=== PATIENT | male | born 1980 | race Caucasian/White ===

== ENCOUNTER 2019-03-28 11:37 | Observation (INO) ==
[2019-03-28] MEDS ORDERED: Isovue-370 500 ML BOTTLE IVP ONE (11:52)
[2019-03-28] MEDS ORDERED: *HR* FentaNYL (PF) 100 MCG/2 ML VIAL IVP ONE (11:54)
--- NOTE | 2019-03-28 12:02 | Emergency Department Note ---
Disposition Clinical Impression: Angioedema Qualifiers: Encounter type: initial encounter Qualified Code(s): T78.3XXA - Angioneurotic edema, initial encounter Disposition: Admitted As Inpatient Condition: Good Referrals: NONE,PCP [Primary Care Provider] - Forms: ED Satisfaction Letter, Work/School Release Time of Disposition: 14:45 General Adult HPI - General Chief complaint: ED General Medical Stated complaint: Facial Swelling Time Seen by Provider: 03/28/19 11:43 Source: patient Limitations: no limitations Nursing Notes Reviewed: Yes Vital Signs Reviewed: Yes - History of Present Illness Pain Scale: 9 - Related Data Home Medications Medication Instructions Recorded Confirmed No Known Home Drugs 03/28/19 03/28/19 Allergies Allergy/AdvReac Type Severity Reaction Status Date / Time No Known Allergies Allergy Verified 03/12/18 16:51 Past Medical History - Past Medical History Medical history: Reports: no medical history, other Psychiatric history: Reports: anxiety, depression - Social History Smoking Status: Never smoker Smokeless Tobacco Status: No Alcohol use: Reports: none Drug use: Reports: none Physical Exam - General Limitations: no limitations General appearance: alert Course Vital Signs Temperature 98.2 F 03/28/19 11:38 Pulse Rate 92 03/28/19 11:38 Respiratory Rate 18 03/28/19 11:38 Blood Pressure 160/97 03/28/19 11:38 O2 Sat by Pulse Oximetry 97 03/28/19 11:38 Temperature 98.2 F 03/28/19 11:38 Pulse Rate 89 03/28/19 13:32 Respiratory Rate 20 03/28/19 13:32 Blood Pressure 151/84 03/28/19 13:32 O2 Sat by Pulse Oximetry 97 03/28/19 13:32 Oxygen Delivery Oxygen Delivery Room Air Medical Decision Making - [facility] Narrative Medical decision making narrative: 1342 hrs.: Labs are back and look good. His glucose is little elevated 123. Symptoms have not changed have not gotten worse either. Waiting on CT scan. 1422 hrs.: Patient's CT is back. We spoke with the ear nose and throat, Dr. Bull was on and recommended start him on Unasyn. In case this is infectious. We will also name steroids. Admitted to hospitalist with ENT consulting. Patient's in agreement with plan. Impression is angioedema uncertain etiology. 1505 hrs.: Hospitals except the patient to their service. - Lab Data Result diagrams: 03/28/19 12:20 03/28/19 12:20 Lab Results 03/28/19 03/28/19 Range/Units 12:20 12:20 WBC 9.7 (4.3-11.1) K/mcL RBC 5.59 H (4.19-5.50) M/mcL Hgb 16.5 (12.9-16.9) g/dL Hct 48.0 (37.5-50.1) % MCV 85.9 (83.0-100.0) fL MCH 29.5 (28.0-33.3) pg MCHC 34.4 (31.6-35.5) g/dL RDW 11.8 (11.5-14.5) % Plt Count 222 (140-400) K/mcL MPV 9.9 (9.4-12.4) fL Immature Gran % 0.3 (0-4) % Seg Neutrophils % 75.9 % Lymphocytes % 11.0 % Monocytes % 11.8 % Eosinophils % 0.7 % Basophils % 0.3 % Neutrophils # 7.4 (1.6-8.9) K/mcL Lymphocytes # 1.1 (0.6-4.6) K/mcL Monocytes # 1.1 (0.0-1.3) K/mcL Eosinophils # 0.1 (0.0-0.6) K/mcL Basophils # 0.0 (0.0-0.2) K/mcL Sodium 139 (136-145) mEq/L Potassium 3.9 (3.5-5.1) mEq/L Chloride 105 (98-107) mEq/L Carbon Dioxide 27 (23-29) mEq/L BUN 11 (6-20) mg/dL Creatinine 0.71 (0.70-1.30) mg/dL Est GFR ( Amer) > 60 (> 60) Est GFR (Non-Af Amer) > 60 (> 60) BUN/Creatinine Ratio 15 (6-26) Glucose 123 H (70-105) mg/dL Calculated Osmolality 289 (280-300) Calcium 9.1 (8.6-10.3) mg/dL Critical Care Time Critical Care Time: Yes Total Critical Care Time: 32 Attestation: Excluding any separately billable procedures. Attestation Statement - Attestation Attestation: This documentation is done with the assistance of Dragon dictation. Despite efforts made to ensure accuracy, there may be inaccuracies in rn maternal child or spelling and typographical errors. I examined this patient and my medical decision-making was reviewed with the Resident Physician. I agree with the documented findings, disposition and treatment plan as described except to the extent set forth below. Patient was seen and evaluated by Dr. Peng I agree with their evaluation and management plan, I supervised care the patient's stay. Patient presents today with swelling of his upper lip and left side of his face. Said started last night and his lip no difficulty swallowing no tongue swelling no airway compromise. He states his abdomen before. He is not any medications no JOSE inhibitor's. Nothing new as far as his diet or new chemical exposures. Denies any family history. He has had some history of poor dentition in the past without seen that looks infected we are in a CT the area this seems to be angioedema but I do not know the cause. we are going to go ahead and do CT give antihistamines and then reassess. She is in agreement with plan
--- NOTE | 2019-03-28 12:19 | Emergency Department Note ---
Disposition Clinical Impression: Angioedema Qualifiers: Encounter type: initial encounter Qualified Code(s): T78.3XXA - Angioneurotic edema, initial encounter Disposition: Admitted As Inpatient Condition: Good Referrals: NONE,PCP [Primary Care Provider] - Forms: ED Satisfaction Letter, Work/School Release Time of Disposition: 15:04 General Adult HPI - General Chief complaint: ED General Medical Stated complaint: Facial Swelling Time Seen by Provider: 03/28/19 11:43 Source: patient Mode of arrival: ambulatory Limitations: no limitations Nursing Notes Reviewed: Yes Vital Signs Reviewed: Yes - History of Present Illness HPI Narrative: Patient is a 39-year-old male that presents emergency department due to facial swelling. Patient states that the swelling started last night. Patient states that the swelling is located on his upper lip and into his left cheek. Patient states he has had this one other time in the past. Patient states that he has not on any Som inhibitors or any medications at this time. Patient states is not have any difficulty with breathing or swallowing. Patient states that it is difficult to drink due to his lip being swollen. Patient states that he has significant history of poor dentition as an following with a dentist to have his teeth pulled. Patient states that he was concerned because his face became increasingly painful and swollen and felt that he should want to be evaluated. Patient has any fevers. Pain Scale: 9 - Related Data Previous Rx's Medication Instructions Recorded Clindamycin [Cleocin] 300 mg PO Q6HR #80 capsule 03/12/18 Allergies Allergy/AdvReac Type Severity Reaction Status Date / Time No Known Allergies Allergy Verified 03/12/18 16:51 All systems ED: reviewed and negative except as stated. Constitutional: Denies: fever ENT ED: Reports: other (Lip and face pain) Cardiovascular: Denies: chest pain Respiratory: Denies: dyspnea Gastrointestinal: Denies: nausea, vomiting, diarrhea Neurological: Denies: weakness, numbness, paresthesias Past Medical History - Past Medical History Medical history: Reports: no medical history, other Psychiatric history: Reports: anxiety, depression - Social History Smoking Status: Never smoker Smokeless Tobacco Status: No Alcohol use: Reports: none Drug use: Reports: none Physical Exam - General Limitations: no limitations General appearance: alert, in no apparent distress - Head Head exam: atraumatic, normocephalic - Expanded ENT Exam Mouth exam: Present: lip swelling (Significant upper lip swelling), tongue normal. Absent: normal external inspection, tounge swelling Teeth exam: Present: other (Multiple dental caries and poor dentition) - Neck Neck exam: Present: normal inspection, full ROM, trachea midline - Respiratory Respiratory exam: Present: normal lung sounds bilaterally. Absent: respiratory distress, wheezes - Cardiovascular Cardiovascular exam: Present: regular rate, normal rhythm, normal heart sounds, +S1, +S2 - Abdominal Exam Abdominal exam: Present: soft, Non-Tender, normal bowel sounds - Neurological Exam Neurological exam: Present: alert, oriented X3 - Psychiatric Psychiatric exam: Present: normal affect, normal mood - Skin Skin exam: Present: warm, dry, intact Course Vital Signs Temperature 98.2 F 03/28/19 11:38 Pulse Rate 92 03/28/19 11:38 Respiratory Rate 18 03/28/19 11:38 Blood Pressure 160/97 03/28/19 11:38 O2 Sat by Pulse Oximetry 97 03/28/19 11:38 Temperature 98.2 F 03/28/19 11:38 Pulse Rate 89 03/28/19 13:32 Respiratory Rate 20 03/28/19 13:32 Blood Pressure 151/84 03/28/19 13:32 O2 Sat by Pulse Oximetry 97 03/28/19 13:32 Oxygen Delivery Oxygen Delivery Room Air Medical Decision Making - MDM Narrative Medical decision making narrative: Due the patient is not emergency Department with reports of swelling to the face we will obtain basic laboratory testing as well as a CT scan of the patient's f som to evaluate for possible abscess formation. Patient laboratory testing is felt to be unremarkable. The CT scan did not show any focal fluid collected but did show soft tissue swelling. I called and spoke with ENT Dr. Steve who recommended that the patient be started on IV antibiotics. Patient was given Pepcid, Benadryl and steroids. The patient will be admitted to the hospital for further evaluation and management. I spoke the admitting hospital list doctor Berny and he is except the patient to their service for further evaluation and management. - Medical Records Medical records reviewed: Yes I reviewed the patient's medical records. - Lab Data Lab results reviewed: Yes I reviewed the patient's lab results. Result diagrams: 03/28/19 12:20 03/28/19 12:20 Lab Results 09/07/19 09/07/19 Range/Units 12:20 12:20 WBC 9.7 (4.3-11.1) K/mcL RBC 5.59 H (4.19-5.50) M/mcL Hgb 16.5 (12.9-16.9) g/dL Hct 48.0 (37.5-50.1) % MCV 85.9 (83.0-100.0) fL MCH 29.5 (28.0-33.3) pg MCHC 34.4 (31.6-35.5) g/dL RDW 11.8 (11.5-14.5) % Plt Count 222 (140-400) K/mcL MPV 9.9 (9.4-12.4) fL Immature Gran % 0.3 (0-4) % Seg Neutrophils % 75.9 % Lymphocytes % 11.0 % Monocytes % 11.8 % Eosinophils % 0.7 % Basophils % 0.3 % Neutrophils # 7.4 (1.6-8.9) K/mcL Lymphocytes # 1.1 (0.6-4.6) K/mcL Monocytes # 1.1 (0.0-1.3) K/mcL Eosinophils # 0.1 (0.0-0.6) K/mcL Basophils # 0.0 (0.0-0.2) K/mcL Sodium 139 (136-145) mEq/L Potassium 3.9 (3.5-5.1) mEq/L Chloride 105 (98-107) mEq/L Carbon Dioxide 27 (23-29) mEq/L BUN 11 (6-20) mg/dL Creatinine 0.71 (0.70-1.30) mg/dL Est GFR ( Amer) > 60 (> 60) Est GFR (Non-Af Amer) > 60 (> 60) BUN/Creatinine Ratio 15 (6-26) Glucose 123 H (70-105) mg/dL Calculated Osmolality 289 (280-300) Calcium 9.1 (8.6-10.3) mg/dL - Radiology Data Radiology results reviewed: Yes I reviewed the patient's radiology results. Face CT 03/28/19 11:52 IMPRESSION: Left facial and lip soft tissue swelling. No focal drainable fluid collection. D/ : / 03/28/2019 14:47:48 Sid Matos MD / elmer Interpreting Provider: Sid Matos MD
[2019-03-28 12:43] LABS: Basophils % 0.3 %; Eosinophils # 0.1 K/mcL (0.0-0.6); Eosinophils % 0.7 %; Hemoglobin 16.5 g/dL (12.9-16.9); Immature Granulocytes % 0.3 % (0-4); Lymphocytes # 1.1 K/mcL (0.6-4.6); Mean Corpuscular HGB Conc 34.4 g/dL (31.6-35.5); Mean Corpuscular Hemoglobin 29.5 pg (28.0-33.3); Mean Corpuscular Volume 85.9 fL (83.0-100.0); Mean Platelet Volume 9.9 fL (9.4-12.4); Monocytes # 1.1 K/mcL (0.0-1.3); Monocytes % 11.8 %; Neutrophils # 7.4 K/mcL (1.6-8.9); Platelet Count 222 K/mcL (140-400); Red Blood Count 5.59 M/mcL (4.19-5.50); Red Cell Distribution Width 11.8 % (11.5-14.5); Segmented Neutrophils % 75.9 %; White Blood Count 9.7 K/mcL (4.3-11.1)
[2019-03-28 12:56] LABS: BUN/Creatinine Ratio 15 (6-26); Blood Urea Nitrogen 11 mg/dL (6-20); Calcium 9.1 mg/dL (8.6-10.3); Carbon Dioxide 27 mEq/L (23-29); Chloride 105 mEq/L (98-107); Glucose 123 mg/dL (70-105); Osmolality,Calculated 289 (280-300); Potassium 3.9 mEq/L (3.5-5.1); Sodium 139 mEq/L (136-145); eGFR For African Americans > 60 (> 60); eGFR For Non-African Americans > 60 (> 60)
[2019-03-28] MEDS ORDERED: Famotidine 20 MG/2 ML VIAL IVP ONE (14:14)
[2019-03-28] MEDS ORDERED: Ampicillin/Sulbactam 3,000 MG in 0.9 % Sodium Chloride Mini Bag 100 ML IVPB ONE (14:15)
[2019-03-28] MEDS ORDERED: methylPREDNISolone 125 MG/2 ML VIAL IVP ONE (14:15)
[2019-03-28] MEDS ORDERED: Naloxone 0.4 MG/ML INJ IVP PRN (17:02)
[2019-03-28] MEDS ORDERED: Acetaminophen 325 MG TABLET PO PRN (17:02)
[2019-03-28] MEDS ORDERED: *HR* Promethazine 25 MG/ML VIAL IVP PRN (17:02)
[2019-03-28] MEDS ORDERED: Mag Hydrox/Al Hydrox/Simeth 30 ML UDC PO PRN (17:02)
[2019-03-28] MEDS ORDERED: Ondansetron 4 MG/2 ML VIAL IVP PRN (17:02)
--- NOTE | 2019-03-28 17:33 | Internal Med History&Physical ---
Date of Encounter: 03/28/19 Time of Encounter: 17:26 Internal Medicine - H&P: HPI Admitted From: Home Plans for Post Hospital Care: Home History of present illness: Mr. Jack is a 39 year old male with past medical history significant for prior dental infection and hypertension presented with left-sided facial swelling. Patient reported that he felt pain and swelling on his left upper lip and cheek. He has had this type of problem in the past 1 year ago and was treated with antibiotics. He took lisinopril in the past for hypertension but currently off. He had a subjective fever but patient did not take temperature. He denies difficulty with breathing or swallowing. He stated that it is difficult for him to drink because of lip swelling. He was concerned that because his face becoming with an impaired for the swallowing presented to the ED for evaluation. In the ED, vital signs were stable, afebrile. Labs were unremarkable. CT of the face showed no abscess besides soft tissue swelling. Patient received 1 dose of IV Unasyn and is admitted for further evaluation and management. Code status discussed with patient, he will be full code while in the hospital. Past Med Surg Social Fam HX - Past Medical History Medical history: no medical history, other Psychiatric history: anxiety, depression - Social History Smoking Status: Never smoker Smokeless Tobacco Status: No Alcohol use: none Drug use: none Internal Medicine - H&P: Meds No Known Home Drugs 03/28/19 [History] Allergy/AdvReac Type Severity Reaction Status Date / Time No Known Allergies Allergy Verified 03/12/18 16:51 All Systems PM: A 10-system review of systems was performed and is negative for pertinent findings except as documented above in the HPI. Review of systems: REVIEW OF SYSTEMS: CONSTITUTIONAL: No weight loss, fever, chills, weakness or fatigue. HEENT: Eyes: No visual loss, blurred vision, double vision or yellow sclerae. Ears, Nose, Throat: No hearing loss, sneezing, congestion, runny nose or sore throat. SKIN: No rash or itching. CARDIOVASCULAR: No chest pain, chest pressure or chest discomfort. No palpitations or edema. RESPIRATORY: No shortness of breath, cough or sputum. GASTROINTESTINAL: No anorexia, nausea, vomiting or diarrhea. No abdominal pain or blood. GENITOURINARY: No dysuria, urgency, or frequency. NEUROLOGICAL: No headache, dizziness, syncope, paralysis, ataxia, numbness or tingling in the extremities. No change in bowel or bladder control. MUSCULOSKELETAL: No muscle, back pain, joint pain or stiffness. HEMATOLOGIC: No anemia, bleeding or bruising. LYMPHATICS: No enlarged nodes. No history of splenectomy. PSYCHIATRIC: No history of depression or anxiety. ENDOCRINOLOGIC: No reports of sweating, cold or heat intolerance. No polyuria or polydipsia. - Constitutional Vitals: Temp Pulse Resp BP Pulse Ox 98.2 F 89 18 141/76 97 03/28/19 11:38 03/28/19 13:32 03/28/19 16:59 03/28/19 16:59 03/28/19 13:32 General appearance: Present: A&O X 3 Exam: PHYSICAL EXAMINATION: GENERAL APPEARANCE: The patient is alert, oriented and in no acute distress. HEENT: facial swelling noted on the left, no tongue swelling. NECK: Supple without lymphadenopathy. HEART: Regular rate and rhythm. LUNGS: No crackles or wheezes are heard. ABDOMEN: Soft, nontender, nondistended with good bowel sounds heard. Inguinal area is normal. EXTREMITIES: Without cyanosis, clubbing or edema. NEUROLOGICAL: Gross nonfocal. SKIN: Warm and dry without any rash. Internal Med - H&P Results - Labs CBC & Chem 7: 03/28/19 12:20 03/28/19 12:20 Labs: Short CBC 03/28/19 Range/Units 12:20 WBC 9.7 (4.3-11.1) K/mcL Hgb 16.5 (12.9-16.9) g/dL Hct 48.0 (37.5-50.1) % Plt Count 222 (140-400) K/mcL Neutrophils # 7.4 (1.6-8.9) K/mcL BMP 03/28/19 12:20 Sodium 139 Potassium 3.9 Chloride 105 Carbon Dioxide 27 BUN 11 Creatinine 0.71 Glucose 123 H Calcium 9.1 - Impressions ITS Impressions Face CT 03/28/19 11:52 IMPRESSION: Left facial and lip soft tissue swelling. No focal drainable fluid collection. D/ /28/2019 14:47:48 Sid Matos MD / elmer Interpreting Provider: Sid Matos MD - Assessment and Plan (1) Dental infection Current Visit: Yes Status: Acute Assessment and plan: 39-year-old gentleman with prior history of dental infection presented with left-sided facial swelling and difficulty swallowing. He reported took lisinopril in the past, however, his symptoms does not fit in angioedema. Facial swelling is very focal, restricted to the left upper mandibula. There is no tongue swelling or oral pharyngeal edema. No wheezing or stridor. Patient received 1 dose of Unasyn at the ED. We will obtain blood cultures, continue Unasyn, continue monitoring respiratory status. If symptoms improved, anticipate discharge in the morning. (2) DVT prophylaxis Current Visit: Yes Status: Acute Assessment and plan: Ambulating and SCDs. - Time Spent With Patient Total time spent is greater than 50% in coordination of care (as documented) at patient's floor/unit and/or counseling patient: Greater than 35 minutes
[2019-03-28] MEDS: Ampicillin/Sulbactam 1,500 MG in 0.9 % Sodium Chloride Mini Bag 100 ML IVPB SCH (17:50)
[2019-03-28] MEDS: traMADol 50 MG TABLET PO PRN (17:52)
[2019-03-28] MEDS: Famotidine 20 MG TABLET PO SCH (20:18)
[2019-03-29] MEDS: traMADol 50 MG TABLET PO PRN ×2 (00:31→10:05)
[2019-03-29] MEDS: Ampicillin/Sulbactam 1,500 MG in 0.9 % Sodium Chloride Mini Bag 100 ML IVPB SCH ×2 (00:32→06:05)
[2019-03-29 04:42] LABS: Basophils % 0.1 %; Hematocrit 45.4 % (37.5-50.1); Hemoglobin 15.9 g/dL (12.9-16.9); Immature Granulocytes % 0.3 % (0-4); Lymphocytes # 0.9 K/mcL (0.6-4.6); Lymphocytes % 7.8 %; Mean Corpuscular Hemoglobin 30.2 pg (28.0-33.3); Mean Corpuscular Volume 86.1 fL (83.0-100.0); Mean Platelet Volume 10.4 fL (9.4-12.4); Monocytes # 0.7 K/mcL (0.0-1.3); Monocytes % 5.7 %; Neutrophils # 9.9 K/mcL (1.6-8.9); Platelet Count 262 K/mcL (140-400); Red Blood Count 5.27 M/mcL (4.19-5.50); Red Cell Distribution Width 11.4 % (11.5-14.5); Segmented Neutrophils % 86.1 %; White Blood Count 11.5 K/mcL (4.3-11.1)
[2019-03-29 05:00] LABS: BUN/Creatinine Ratio 21 (6-26); Blood Urea Nitrogen 13 mg/dL (6-20); Calcium 8.5 mg/dL (8.6-10.3); Carbon Dioxide 22 mEq/L (23-29); Chloride 103 mEq/L (98-107); Glucose 152 mg/dL (70-105); Osmolality,Calculated 283 (280-300); Potassium 3.6 mEq/L (3.5-5.1); Sodium 135 mEq/L (136-145); eGFR For African Americans > 60 (> 60); eGFR For Non-African Americans > 60 (> 60)
[2019-03-29 07:04] VITALS: BP 107/68
[2019-03-29] MEDS: Famotidine 20 MG TABLET PO SCH (09:52)
--- NOTE | 2019-03-29 09:52 | Discharge Summary ---
Date of Encounter: 03/29/19 Time of Encounter: 09:47 - Discharge Diagnosis (1) Dental infection Priority: Primary Status: Acute (2) DVT prophylaxis Priority: Secondary Status: Acute Hospital course: Mr. Jack is a 39 year old male with a past medical history of prior dental infection and hypertension. He presented with left-sided facial pain and swelling. Patient noted that he had a similar problem in the past which was managed with antibiotics and was diagnosed with hepatitis infection. He also admitted to headache and fever and chills. He was given IV antibiotics and steroids which helped with resolution of facial swelling overnight. Patient will be discharged on oral antibiotics and steroids. To follow-up with primary care doctor Discharge discussed with: patient, family, nurse - Time Spent with Patient Total time spent providing and/or coordinating discharge services: Time spent: Less than 30 minutes (30 MINUTES), Greater than 30 minutes - Discharge Medications Prescriptions: New Amoxicillin/Clavulanate [Augmentin] 875 mg PO BIDWM #10 tablet PredniSONE [Deltasone] 40 mg PO DAILY #3 tablet Home Medications: Amoxicillin/Clavulanate [Augmentin] 875 mg PO BIDWM #10 tablet 03/29/19 [Rx] PredniSONE [Deltasone] 40 mg PO DAILY #3 tablet 03/29/19 [Rx] Allergies/Adverse Reactions: Allergy/AdvReac Type Severity Reaction Status Date / Time No Known Allergies Allergy Verified 03/12/18 16:51 Date of admission: 03/28/19 16:07 Primary care physician: PCP NONE - Constitutional Vitals: Temp Pulse Resp BP Pulse Ox 37.1 C 85 15 107/68 92 03/29/19 07:03 03/29/19 07:03 03/29/19 07:03 03/29/19 07:03 03/29/19 07:03 General appearance: Present: A&O X 3 Exam: GENERAL: Not in distress. Alert and Oriented. Left sided-facial and upper lip swelling has improved significantly. HEENT: EOMI, PERRLA, Mild tenderness on palpation of left zygomatic bone. MOUTH: Moist oral mucosa. No obvious swelling or discharge seen on gums. No tongue swelling. NECK:No JVD, No lymph nodes. CHEST AND LUNGS: Normal breath sounds, no wheezes or crackles HEART: S1 and S2 normal, no murmurs ABDOMEN: Soft, nontender, no organomegaly SKIN: Normal color, no rahses, no lesions EXTREMITIES: No deformity, no edema, no tenderness, no joint swelling or clubbing NEUROLOGICAL: Normal cognition, normal motor and sensory exam. - Patient Status Disposition: Home, Self-Care Condition: Good Functional capacity at discharge: independent ambulation Overall status at discharge: patient is progressing back to baseline - Discharge Instructions Follow Up With: NONE,PCP [Primary Care Provider] - - Diet and Activity Activity: resume usual activities as tolerated Diet: advance to your usual diet
--- NOTE | 2019-03-30 10:33 | Electrocardiograph Report ---
[address] [place] [address] Test Date: 2019-03-28 Pat Name: Kirit Jack Department: 111 Room: 2N7 Gender: M Dry Cleaner: RAW : 1980 Requested By: Clarice Mascorro Order Number: [id number] Reading MD: Bob Mayer Measurements Intervals Alder Rate: 108 P: 58 CO: 163 QRS: 67 QRSD: 90 T: 31 QT: 334 QTc: 398 Interpretive Statements SINUS TACHYCARDIA WITH FREQUENT SUPRAVENTRICULAR PREMATURE COMPLEXES ABNORMAL RHYTHM ECG Electronically Signed On 03-30-2019 10:32:35 EDT by Bob Mayer
== END 2019-03-29 12:06 | disposition home or self-care (01) ==
LOC: EMEROOARM 11:37 → 2NENU 11:37 → SUATTDRO 16:07 → 2NENU 17:11
PROVIDERS: ADMIT Internal Medicine; ATTEND Internal Medicine